=== PATIENT | male | born 1970 | race Caucasian/White ===

== ENCOUNTER 2025-04-22 08:50 | Emergency (ER) | payer OTHER ==
[2025-04-22] MEDS: fentaNYL 100 MCG/2 ML SDV IVPUSH ONE (09:23)
[2025-04-22] MEDS: Ondansetron 4 MG/2 ML SDV IVPUSH ONE (09:23)
[2025-04-22] MEDS: Ketorolac 30 MG/ML SDV IVPUSH ONE (09:24)
[2025-04-22 09:59] LABS: APPEARANCE,URINE CLEAR (CLEAR); GLUCOSE,URINE NEGATIVE (NEGATIVE); OCCULT BLOOD,URINE LARGE (NEGATIVE)
[2025-04-22 10:30] LABS: EPITHELIAL CELLS,URINE FEW /HPF (NOT SEEN)
[2025-04-22 11:27] LABS: BASOPHILS PERCENT AUTO 0.1 % (0.0-1.0); EOSINOPHILS PERCENT AUTO 0.5 % (1.0-3.0); LYMPHOCYTES PERCENT AUTO 7.6 % (20.5-50.1); MONOCYTES PERCENT AUTO 7.1 % (2-8); NEUTROPHILS PERCENT AUTO 84.7 % (42.2-75.2); PLATELET COUNT,PLT 154 10^3/uL (150-450); RED BLOOD CELL COUNT 4.64 10^6/uL (4.6-6.2); WHITE BLOOD CELL COUNT,WBC 15.3 10^3/uL (5.0-10.0)
[2025-04-22 11:48] LABS: A/G RATIO 1.2; ALANINE AMINOTRANSFERASE,ALT 22.0 U/L (16-63); ASPARTATE AMNIOTRANSFERASE,AST 19.0 U/L (15-37); BILIRUBIN TOTAL 0.5 mg/dL (0.2-1.0); BLOOD UREA NITROGEN,BUN 21.0 mg/dL (7-18); CARBON DIOXIDE,CO2 30.0 mmol/L (21-32); CHLORIDE,CL 102.0 mmol/L (98-107); CREATININE 1.33 mg/dL (0.70-1.30); EST CRCL DRUG DOSING (CG) 61.98 mL/min; ESTIMATED GFR 64.0 mL/min (>=60); GLUCOSE RANDOM 98.0 mg/dL (70-99); POTASSIUM,K 3.7 mmol/L (3.5-5.1); PROTEIN TOTAL,TP 7.1 g/dL (6.4-8.2); SODIUM,NA 138.0 mmol/L (136-145)
== END 2025-04-22 12:37 ==
LOC: DL.ED 08:50
DX: N13.2 Hydronephrosis with renal and ureteral calculous obstruction (principal); Z88.5 Allergy status to narcotic agent
CPT/HCPCS: 36415; 51798; 74176; 80053; 81001; 85025; 96374; 96375; 99284; 99285; J0696; J1885; J2405; J3010